=== PATIENT | female | born 1970 | race Caucasian/White ===

== ENCOUNTER 2019-05-26 09:30 | Emergency (ER) | payer OTHER ==
[~2019-05-26] VITALS: Ht 152.4 cm; Wt 49.4 kg
[~2019-05-26 09:30] MED LIST: FLEXERIL10 MG PO; ROCALTROL0.25 MCG PO; SYNTHROID75 MCG PO
[2019-05-26] MEDS ORDERED: AMBIEN5 MG (09:36)
== END 2019-05-26 12:17 | disposition home or self-care (01) ==
LOC: ER 09:30
DX: M62.838 Other muscle spasm (principal); F06.4 Anxiety disorder due to known physiological condition